=== PATIENT | female | born 1995 | race Two or more races ===

== ENCOUNTER 2017-04-27 08:04 | Inpatient (IN) | payer MEDICAID ==
[2017-04-27 10:06] LABS: APPEARANCE,URINE CLEAR; BILIRUBIN,URINE NEGATIVE (NEGATIVE); GLUCOSE, URINE NEGATIVE (NEGATIVE); KETONES,URINE NEGATIVE (NEGATIVE); LEUKOCYTE ESTERASE,URINE TRACE (NEGATIVE); NITRITE,URINE NEGATIVE (NEGATIVE); PROTEIN,URINE NEGATIVE (NEGATIVE); URINE SPECIFIC GRAVITY 1.006; UROBILINOGEN,URINE NEGATIVE mg/dL (<2.0)
[2017-04-27 10:33] LABS: URINE BARBITURATES SCREEN NEGATIVE; URINE PHENCYCLIDINE SCREEN NEGATIVE
[2017-04-27 10:39] LABS: URINE OPIATES LOW UNCONFIRMED POSITIVE
[2017-04-27 10:40] LABS: URINE METHADONE SCREEN UNCONFIRMED POSITIVE
[2017-04-27] MEDS ORDERED: OXYTOCIN/NORMAL SALINE 20 UNIT/1,000 ML RTUINJ ONE (10:58)
[2017-04-27] MEDS ORDERED: MISOPROSTOL 0.2 MG TABLET ONE (10:58)
[2017-04-27] MEDS ORDERED: LIDOCAINE 1% INJ-PF (10 MG/ML) 30 ML SDV ONE (10:58)
[2017-04-27] MEDS ORDERED: PENICILLIN G-K 5 MILLION UNIT VIAL ONE (10:58)
[2017-04-27 11:44] LABS: ABSOLUTE EOSINOPHILS # (AUTO) 0.1 10^3/uL (0.0-0.6); ABSOLUTE LYMPHOCYTES (AUTO) 3.9 10^3/uL (0.5-4.7); ABSOLUTE MONOCYTES (AUTO) 1.3 10^3/uL (0.1-1.4); ABSOLUTE NEUT (AUTO) 9.6 10^3/uL (1.7-8.2); BASOPHILS % (AUTO) 0.3 % (0-2); HEMATOCRIT 36.1 % (36.0-47.0); HEMOGLOBIN 12.7 g/dL (12.0-15.5); LYMPHOCYTES % (AUTO) 25.9 % (13-45); MEAN CORPUSCULAR HEMOGLOBIN 31.4 pg (27.0-33.4); MEAN CORPUSCULAR HGB CONC 35.1 g/dL (32.0-36.0); MEAN CORPUSCULAR VOLUME 90 fl (80-97); MONOCYTES % (AUTO) 8.9 % (3-13); RED BLOOD COUNT 4.02 10^6/uL (3.72-5.28); SEGMENTED NEUTROPHILS % (AUTO) 63.9 % (42-78)
[2017-04-27] MEDS ORDERED: ACETAMINOPHEN WITH CODEINE #3 TABLET PO PRN ×2 (12:20)
[2017-04-27] MEDS ORDERED: BENZOCAINE/MENTHOL AEROSOL SPRAY 56 ML TOP PRN (12:20)
[2017-04-27] MEDS ORDERED: DIBUCAINE 1% OINTMENT 28 GM TP PRN (12:20)
[2017-04-27] MEDS ORDERED: ZOLPIDEM TARTRATE 5 MG TABLET PO PRN (12:20)
[2017-04-27] MEDS ORDERED: OXYTOCIN/NORMAL SALINE 20 UNIT/1,000 ML RTUINJ IV PRN (12:20)
[2017-04-27] MEDS ORDERED: MEASLES,MUMPS&RUBELLA VACC/PF 0.5 ML VIAL SUBCUT PRN (12:20)
[2017-04-27] MEDS ORDERED: DIPH/PERTUSS(ACELL)/TETANUS VAC/PF 0.5 ML SYR (>=10YO) IM PRN (12:20)
[2017-04-27] MEDS: IBUPROFEN 800 MG TABLET PO SCH ×2 (12:35→21:14)
[2017-04-27] MEDS ORDERED: IBUPROFEN 800 MG TABLET ONE (12:36)
[2017-04-27 12:43] LABS: RUBELLA IGG ANTIBODY 7.05 IU/mL
[2017-04-27 12:52] LABS: ALANINE AMINOTRANSFERASE 47 U/L (9-52); ALBUMIN 3.2 g/dL (3.5-5.0); ALKALINE PHOSPHATASE 206 U/L (38-126); ANION GAP 10 (5-19); ASPARTATE AMINO TRANSFERASE 33 U/L (14-36); BILIRUBIN,DIRECT 0.4 mg/dL (0.0-0.4); BILIRUBIN,TOTAL 0.4 mg/dL (0.2-1.3); BLOOD UREA NITROGEN 6 mg/dL (7-20); CALCIUM 9.3 mg/dL (8.4-10.2); CARBON DIOXIDE 22 mmol/L (22-30); CHLORIDE 103 mmol/L (98-107); CREATININE RESULT 0.57 mg/dL (0.52-1.25); GLUCOSE 69 mg/dL (75-110); SODIUM 135.2 mmol/L (137-145); TOTAL PROTEIN 6.8 g/dL (6.3-8.2)
[2017-04-27 13:07] LABS: ADD HIVPANEL? NO; HIV (1 AND 2) ANTIBODY NEGATIVE (NEGATIVE)
--- NOTE | 2017-04-27 14:22 | Delivery Summary ---
Del Sum A-C Datetime Report Generated by CPN: 04/27/2017 14:21 DELIVERY PERSONNEL DELIVERY PERSONNEL: [id number] Delivery Doctor:: Brigida Medellin CNM Nurse Cardiopulmonary Supervisor Certified:: Brigida Medellin CNM Labor and Delivery Nurse:: Scooby Cooper RN Labor and Delivery Nurse:: NALLELY Fulton Nursery Nurse:: Carol Thompson RN Casting Cleaner/FARM MACHINERY ERECTOR: Chastity Sue CNA II Casting Cleaner/FARM MACHINERY ERECTOR: Mai aHrley, PIN BALL MACHINE MECHANIC MATERNAL INFORMATION Delivery Anesthesia: None Medications After Delivery: Pitocin Bolus-Please Comment; Pitocin Drip 20 Units/1000ml NSS Meds After Delivery Comment: 20 units pitocin after placenta delivery Estimated Blood Loss (ml): 200 Maternal Complications: Other Provider Comments: of viable male infant, head, shoulder, and body delivered without difficulty. Infant with spontaneous cry and respirations. Cord clamped X2 and cut free by pts . Spontaneous delivery of placenta via ortiz, appears intact 3 VC, to pathology, vagina and perineum inspected, left labial laceration reapired with single stitch. Hemostasis acheived with external fundal massage and IV pitocin, mother and baby in stable condition, rouitne care. LABOR SUMMARY EDC: 05/02/2017 00:00 No. Babies in Womb: 1 Attempted: No Labor Anesthesia: None LABOR INFORMATION Reason for Induction: Not Applicable Onset of Labor: 04/27/2017 05:00 Complete Dilatation: 04/27/2017 11:59 Oxytocin: N/A Group B Beta Strep: Unknown Antibiotics # of Doses: 1 Antibiotics Time of Last Dose: 1114 Name of Antibiotic Given: PCN Steroids Given: None Reason Steroids Not Administered: Not Applicable MEMBRANES Membranes Rupture Method: Artificial Rupture of Membranes: 04/27/2017 12:02 Length of Rupture (hr): 0.07 Amniotic Fluid Color: Clear Amniotic Fluid Amount: Small Amniotic Fluid Odor: Normal STAGES OF LABOR Stage 1 hr: 6 Stage 1 min: 59 Stage 2 hr: 0 Stage 2 min: 7 Stage 3 hr: 0 Stage 3 min: 4 Total Time in Labor hr: 7 Total Time in Labor min: 10 VAGINAL DELIVERY Episiotomy: None Laceration Extension: N/A Other Laceration: L Labial Laceration Repair: Yes Laceration Repair Note: repaired with a single stitch with 2-0 chromic, no anesthsia used. Sponge Count Correct: N/A Sharps Count Correct: N/A CSECTION DELIVERY Primary Indication: N/A Other Primary Indication: n/a Secondary Indication: N/A Other Secondary Indication: n/a CSection Urgency: n/a CSection Incidence: N/A Labor: N/A Elective: N/A CSection Incision: N/A BABY A INFORMATION Delivery Date/Time: 04/27/2017 12:06 Method of Delivery: Vaginal Born in Route : No : N/A Forceps: N/A Vacuum Extraction: N/A Shoulder Dystocia : No PRESENTATION/POSITION BABY A Presentation: Cephalic Cephalic Presentation: Vertex Vertex Position: Left Occipital Anterior Breech Presentation: N/A PLACENTA INFORMATION BABY A Placenta Delivery Time : 04/27/2017 12:10 Placenta Method of Delivery: Spontaneous Placenta Status: Delivered SCORES BABY A Heart Rate 1 min: >100 bpm Resp Effort 1 min: Good Cry Reflex Irritability 1 min: Cough or Sneeze or Pulls Away Muscle Tone 1 min: Active Motion Color 1 min: Blue/Pale Resuscitation Effort 1 min: Tactile Stimulation SCORE 1 MIN: 8 Heart Rate 5 min: >100 bpm Resp Effort 5 min: Good Cry Reflex Irritability 5 min: Cough or Sneeze or Pulls Away Muscle Tone 5 min: Active Motion Color 5 min: Body Dickey, Extremities Blue Resuscitation Effort 5 min: N/A SCORE 5 MIN: 9 Resuscitation Effort 10 min: N/A INFORMATION BABY A Gestational Age at Delivery: 39.2 Gestational Status: Full Term- 39- 40.6 Weeks Infant Outcome : Liveborn Infant Condition : Stable Infant Sex: Male IDENTIFICATION BABY A Infant Verification Date/Time: 04/27/2017 13:09 ID Band Number: [id number] Mother's Name Verified: Yes Infant RN Verifying : RN Allison/ RN Roulund WEIGHT/LENGTH BABY A Birthweight (gm): 2550 Weight (lb): 5 Weight (oz): 10 Length (in): 18.25 Infant Length (cm): 46.36 CORD INFORMATION BABY A No. Cord Vessels: 3 Nuchal Cord : N/A Cord Blood Taken: Yes-For Eval (Mom's Blood Type - or O+) Infant Suction: Mouth; Nose ASSESSMENT BABY A Infant Complications: None Physical Findings at Delivery: Other Physical Findings- Other: see nursery notes Infant Respirations: Appears Normal Skin to Skin: No Refund Clerk/ALS Called : No Care By: Che Perez RN Transferred To: Remains with Mother BABY B INFORMATION : N/A SIGNATURES Assignment: Barbara Gasca MD Signature: with User ID: [email or web address] : with User ID: [email or web address]
--- NOTE | 2017-04-27 14:32 | Admission Physical ---
Datetime Report Generated by CPN: 04/27/2017 14:32 CURRENT ADMISSION Hx Assessment: The History has been Reviewed and is Current Chief Complaint: Uterine Contractions Admit Plan: Admit to Unit; Initiate Labor Protocol ALLERGIES Medication Allergies: No Medication Allergies: No Known Allergies (04/27/2017) Latex: No Latex Allergies OBSTETRICAL HISTORY EDC: 05/02/2017 00:00 : 1 Para: 0 Term: 0 : 0 SAB: 0 IAB: 0 Ectopic: 0 Livin Cesareans: 0 VBACs: 0 Multiple Births: 0 Gestational Diabetes: No Rh Sensitization: No Incompetent Cervix: No EMANUEL: No Infertility: No ART Treatment: No Uterine Anomaly: No IUGR: No Hx Previous C/S: No Macrosomia: No Hx Loss/Stillborn: No PIH: No Hx : No Placenta Previa/Abruption: No Depression/PP Depression: No PTL/PROM: No Post Hemorrhage: No Obstetrical History Comments: G1: current, denies any problems SEE RECORDS Alcohol: No Marijuana : No Cocaine: No Other Illicit Drugs: No Illicit Drug Comments: Pt denies any use, pt's mother reports pt using methadone. Per recorder, pt heroine user and uses marijuana regularly. Cigarettes: Current Everyday Smoker. [id number] Cigarette Frequency: 5 - 10 per day Advised to Stop: Yes MEDICAL HISTORY Diabetes: No Blood Transfusion: No Pulmonary Disease (Asthma, TB): Yes Breast Disease: No Hypertension: No Spring Tacker Surgery: No Heart Disease: No Hosp/Surgery: Yes Autoimmune Disorder: No Anesthetic Complications: No Kidney Disease: No Abnormal Pap Smear: No Neuro/Epilepsy: No Psychiatric Disorders: No Other Medical Diseases: No Hepatitis/Liver Disease: No Significant Family History: No Varicosities/Phlebitis: No Trauma/Violence : No Thyroid Dysfunction: No Medical History Comments: Mother states hospitalized for pneumonia and asthma, has inhaler last used 2 weeks ago INFECTIOUS HISTORY Gonorrhea: No Genital Herpes: No Chlamydia: No Tuberculosis: No Syphilis: No Hepatitis: Yes HIV/AIDS Exposure: No Rash or Viral Illness: No HPV: No Infectious History Comments: Hepatitis C PHYSICAL EXAM General: Normal HEENT: Normal Neurologic: Normal Thyroid: Deferred Heart: Normal Lungs: Normal Breast: Normal Back: Normal Abdomen: Normal Genitourinary Exam: Normal Extremities: Normal DTRs: Normal Pelvic Type: Adequate Vital Signs: Reviewed VAGINAL EXAM Dilatation: 9 Effacement: 100 Station: 0 Contraction Comments: 3 min MEMBRANES Membranes: Intact FETUS A EGA: 39.2 Monitoring: External US FHR- Baseline: 120 Variability: Moderate 6-25bpm Accelerations: 15X15 Decelerations: None FHR Category: Category I Estimated Weight (gm): 3000 Presentation: Vertex Admit Comment: Admit to L _ D, active labor Pt had care in [place] with Dr. Mccray. No records available at this time. Pt states baby was "small at the last visit" but she has not followed up. GBS unknown, tx with pcn Pt states she is on methadone, on UDS today + opiates and methadone Pt was also told she is Hepititis C + but has had no follow up, peds notified. 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
[2017-04-27] MEDS: FERROUS SULFATE 325 MG TABLET PO SCH (17:06)
[2017-04-27] MEDS: ACETAMINOPHEN WITH CODEINE #3 TABLET PO PRN (17:06)
[2017-04-27] MEDS: DOCUSATE SODIUM 100 MG CAPSULE PO SCH (17:07)
[2017-04-27 17:50] LABS: CHLAM PCR NOT DETECTED (NOT DETECT)
[2017-04-28] MEDS: ACETAMINOPHEN WITH CODEINE #3 TABLET PO PRN ×2 (00:13→07:30)
[2017-04-28] MEDS: IBUPROFEN 800 MG TABLET PO SCH ×3 (05:08→21:32)
[2017-04-28 07:42] LABS: HEPATITIS C VIRUS AB <0.1 s/co ratio (0.0-0.9)
[2017-04-28 07:46] LABS: HEMATOCRIT 32.9 % (36.0-47.0); HEMOGLOBIN 11.5 g/dL (12.0-15.5); HGB HCT DIFFERENCE 1.6; MEAN CORPUSCULAR HEMOGLOBIN 31.6 pg (27.0-33.4); MEAN CORPUSCULAR HGB CONC 34.9 g/dL (32.0-36.0); MEAN CORPUSCULAR VOLUME 91 fl (80-97); RED BLOOD COUNT 3.62 10^6/uL (3.72-5.28); RED CELL DISTRIBUTION WIDTH 12.9 % (11.5-14.0); WHITE BLOOD COUNT 13.7 10^3/uL (4.0-10.5)
[2017-04-28] MEDS ORDERED: METHADONE HCL 10 MG TABLET PO ONE (08:30)
[2017-04-28] MEDS: DOCUSATE SODIUM 100 MG CAPSULE PO SCH ×2 (09:17→17:43)
[2017-04-28] MEDS: FERROUS SULFATE 325 MG TABLET PO SCH ×2 (09:17→17:43)
[2017-04-28] MEDS: PRENATAL VITAMIN W-O CA NO5/FE FUMARATE/FA CAPSULE PO SCH (09:17)
[2017-04-28] MEDS: SENNOSIDES/DOCUSATE 8.6-50 MG 1 EACH TABLET PO SCH (09:18)
[2017-04-28] MEDS ORDERED: METHADONE HCL 10 MG TABLET PO SCH (10:00)
--- NOTE | 2017-04-28 10:39 | PDOC PROGRESS REPORT ---
Subjective-OB Subjective: Post Delivery Day: 21 year old. Denies any needs at this time Doing well, no c/o, desires circumcision, scant bleeding Physical Exam (OB) Vital Signs: Temp Pulse Resp BP Pulse Ox 98.4 F 87 15 143/85 H 100 04/28/17 07:48 04/28/17 07:48 04/28/17 07:48 04/28/17 07:48 04/28/17 07:48 Intake & Output 04/27/17 04/28/17 04/29/17 06:59 06:59 06:59 Weight 58.45 kg - PIH/Pre-Eclampsia DTR's: 2 + Clonus: Negative Headache: Absent Epigastric Pain: No Visual Changes: No - Lochia Lochia Amount: Small 10-25 ml Lochia Color: Rubra/Red - Abdomen Description: Soft, Round Hernia Present: No Fundal Description: Firm, Midline Fundal Height: u/u - u/2 Objective-Diagnostic Laboratory: 04/28/17 07:18 04/27/17 11:03 04/27/17 04/27/17 04/27/17 11:03 11:03 11:03 WBC 15.0 H RBC 4.02 Hgb 12.7 Hct 36.1 MCV 90 MCH 31.4 MCHC 35.1 RDW 13.0 Plt Count 268 Seg Neutrophils % 63.9 Lymphocytes % 25.9 Monocytes % 8.9 Eosinophils % 1.0 Basophils % 0.3 Absolute Neutrophils 9.6 H Absolute Lymphocytes 3.9 Absolute Monocytes 1.3 Absolute Eosinophils 0.1 Absolute Basophils 0.0 Sodium 135.2 L Potassium 4.0 Chloride 103 Carbon Dioxide 22 Anion Gap 10 BUN 6 L Creatinine 0.57 Est GFR ( Amer) > 60 Est GFR (Non-Af Amer) > 60 Glucose 69 L Calcium 9.3 Total Bilirubin 0.4 AST 33 ALT 47 Alkaline Phosphatase 206 H Total Protein 6.8 Albumin 3.2 L Blood Type O POSITIVE Antibody Screen NEGATIVE 04/28/17 07:18 WBC 13.7 H RBC 3.62 L Hgb 11.5 L Hct 32.9 L MCV 91 MCH 31.6 MCHC 34.9 RDW 12.9 Plt Count 248 Seg Neutrophils % Lymphocytes % Monocytes % Eosinophils % Basophils % Absolute Neutrophils Absolute Lymphocytes Absolute Monocytes Absolute Eosinophils Absolute Basophils Sodium Potassium Chloride Carbon Dioxide Anion Gap BUN Creatinine Est GFR ( Amer) Est GFR (Non-Af Amer) Glucose Calcium Total Bilirubin AST ALT Alkaline Phosphatase Total Protein Albumin Blood Type Antibody Screen Assessment and Plan(PN) - Assessment and Plan (1) Hepatitis C antibody test positive Is this a current diagnosis for this admission?: Yes (2) Vaginal delivery Is this a current diagnosis for this admission?: Yes (3) Methadone use Is this a current diagnosis for this admission?: Yes (4) Heroin abuse affecting Qualifiers: Trimester: unspecified trimester Qualified Code(s): O99.320 - Drug use complicating , unspecified trimester; F11.10 - Opioid abuse, uncomplicated Is this a current diagnosis for this admission?: Yes - Time Spent with Patient Time with patient: Less than 15 minutes Smoking Education Provided: Over 3 minutes Medications reviewed and adjusted accordingly: Yes - Disposition Anticipated Discharge: Home Within: within 24 hours
[2017-04-29] MEDS: IBUPROFEN 800 MG TABLET PO SCH ×2 (05:47→13:14)
[2017-04-29] MEDS ORDERED: METHADONE HCL 10 MG TABLET PO SCH (08:00)
[2017-04-29 08:58] VITALS: BP 118/57
--- NOTE | 2017-04-29 10:10 | PDOC PROGRESS REPORT ---
Subjective-OB Subjective: Post Delivery Day: 21 year old. Denies any needs at this time. Ready for discharge. Physical Exam (OB) Vital Signs: Temp Pulse Resp BP Pulse Ox 98.4 F 75 12 118/57 L 98 04/29/17 08:06 04/29/17 08:06 04/29/17 08:06 04/29/17 08:06 04/29/17 08:06 Intake & Output 04/28/17 04/29/17 04/30/17 06:59 06:59 06:59 Intake Total 400 Balance 400 Weight 58.45 kg - PIH/Pre-Eclampsia DTR's: 2 + Clonus: Negative Headache: Absent Epigastric Pain: No Visual Changes: No - Lochia Lochia Amount: Scant < 10 ml Lochia Color: Rubra/Red - Abdomen Description: Tender, Soft Hernia Present: No Bowel Sounds: Normoactive Flatus Presence: Present Stool: Yes Fundal Description: Firm, Midline Fundal Height: u/u - u/2 Objective-Diagnostic Laboratory: 04/28/17 07:18 04/27/17 11:03 Assessment and Plan(PN) - Time Spent with Patient Smoking Education Provided: Over 3 minutes Medications reviewed and adjusted accordingly: Yes - Disposition Anticipated Discharge: Home
[2017-04-29] MEDS: SENNOSIDES/DOCUSATE 8.6-50 MG 1 EACH TABLET PO SCH (10:15)
[2017-04-29] MEDS: PRENATAL VITAMIN W-O CA NO5/FE FUMARATE/FA CAPSULE PO SCH (10:15)
[2017-04-29] MEDS: FERROUS SULFATE 325 MG TABLET PO SCH (10:15)
[2017-04-29] MEDS: DOCUSATE SODIUM 100 MG CAPSULE PO SCH (10:15)
--- NOTE | 2017-04-29 10:15 | PDOC DISCHARGE SUMMARY ---
Final Diagnosis Discharge Date: 04/29/17 - Final Diagnosis (1) Hepatitis C antibody test positive Is this a current diagnosis for this admission?: Yes (2) Heroin abuse affecting Is this a current diagnosis for this admission?: Yes (3) Methadone use Is this a current diagnosis for this admission?: Yes (4) Vaginal delivery Is this a current diagnosis for this admission?: Yes Discharge Data - Discharge Medication Home Medications: Methadone HCl [Methadone Oral Soln 1Mg/ml 30 ml Bottle] 50 mg PO DAILY 04/27/17 Gestational Age: 39.2 wks Reason(s) for Admission: Onset of Labor Intrapartum Procedure(s): Spontaneous Vaginal Delivery Complication(s): Laceration-Labial - Data Baby 1 Male at 1 minute: 8 at 5 minutes: 9 Weight: 2.551 kg Home with Mother: No Complications: Yes - Drug exposure - Diagnosis Test Laboratory: Temp Pulse Resp BP Pulse Ox 98.4 F 75 12 118/57 L 98 04/29/17 08:06 04/29/17 08:06 04/29/17 08:06 04/29/17 08:06 04/29/17 08:06 04/27/17 04/27/17 04/28/17 09:34 11:03 07:18 RBC 4.02 3.62 L Hgb 12.7 11.5 L Hct 36.1 32.9 L Urine Opiates Screen UNCONFIRMED POSITIVE - Discharge information/Instructions Discharge Activity: Activity As Tolerated, Balance Activity w/Rest, Pelvic Rest , Slowly Increase Activity, No tub bath Discharge Diet: Regular Disposition: HOME, SELF-CARE Follow [facility] in: 4, Weeks
[2017-04-29 11:39] LABS: HEPATITIS C QUANT NON GRAPH HCV Not Detected IU/mL (.)
[2017-05-04 15:15] LABS: OPIATE CONFIRMATION Positive (.)
== END 2017-04-29 14:15 | disposition home or self-care (01) | DRG 775 ==
LOC: LC 08:04 → LR 11:08 → 2S 14:30
PROVIDERS: ADMIT Obstetrics & Gynecology; ATTEND Specialist
PROC: 10E0XZZ Delivery of Products of Conception, External Approach (ICD-10-PCS; principal; 2017-04-27)
PROC: 0HQ9XZZ Repair Perineum Skin, External Approach (ICD-10-PCS; 2017-04-27)
PROC: 4A1HXCZ Monitoring of Products of Conception, Cardiac Rate, External Approach (ICD-10-PCS; 2017-04-27)
PROC: 10907ZC Drainage of Amniotic Fluid, Therapeutic from Products of Conception, Via Natural or Artificial Opening (ICD-10-PCS; 2017-04-27)
DX: O99.324 Drug use complicating childbirth (principal); F11.10 Opioid abuse, uncomplicated; O99.334 Smoking (tobacco) complicating childbirth; F17.210 Nicotine dependence, cigarettes, uncomplicated; Z20.5 Contact with and (suspected) exposure to viral hepatitis; F12.90 Cannabis use, unspecified, uncomplicated; Z3A.39 39 weeks gestation of pregnancy; O70.0 First degree perineal laceration during delivery; Z37.0 Single live birth
CPT/HCPCS: 36415; 80053; 80307; 80361; 81005; 85025; 85027; 86592; 86701; 86762; 86803; 86804; 86850; 86900; 86901; 87340; 87491; 87522; 87591; 88307; G6056; J2540; J2590; J3490